=== PATIENT | male | born 1980 | race Caucasian/White ===

== ENCOUNTER 2021-01-09 15:36 | Outpatient (CLI) | payer BC, SELFPAY | END 2021-01-09 15:37 | disposition home or self-care (01) | LOC: ANHCOVIDVC 15:36 | DX: Z23 Encounter for immunization (principal) | CPT/HCPCS: 0001A; 91300 ==

== ENCOUNTER 2021-01-30 15:25 | Outpatient (CLI) | payer BC, SELFPAY | END 2021-01-30 15:26 | disposition home or self-care (01) | LOC: ANHCOVIDVC 15:26 | DX: Z23 Encounter for immunization (principal) | CPT/HCPCS: 0002A; 91300 ==

== ENCOUNTER 2024-10-21 09:00 | Emergency (ER) | payer BC, SELFPAY ==
--- NOTE | ~2024-10-21 | CT_ITS ---
CLINICAL INDICATION: Left lower quadrant pain COMPARISON: None. TECHNIQUE: Multiple contiguous axial images of the abdomen and pelvis were performed following the ad ministration of with 100 mL Omnipaque-350 intravenous contrast The dose-length product (DLP) was 615.56 mGy-cm. Automated exposure control and iterative reconstruction technique were employed. FINDINGS/OBSERVATIONS: Visualized lower thorax: Trace bibasilar atelectasis. The remainder of the bilateral lung bases are otherwise clear. The heart is of normal size, without pericardial effusion. Liver: The liver enhances homogeneously, and is enlarged measuring 20 cm in longitudinal dimension. Gallbladder and biliary system: The gallbladder is only minimally distended, and otherwise unremarkable. Pancreas: The pancreas enhances homogeneously without ductal dilatation. Spleen: The spleen enhances homogeneously and is not enlarged measuring 8 cm in longitudinal dimension. Kidneys: 5 mm calculus within the lower pole of the left kidney The bilateral kidneys enhance symmetrically without hydronephrosis or renal calculi. Adrenal glands: Unremarkable. Gastrointestinal tract: Mural thickening and edema is identified within the majority of the colon, sparing the transverse and distal descending colon. Surrounding inflammatory change is also identified consistent with a coliti s. No perforation or fluid collection is present. Appendix: The air-filled appendix is of normal caliber (axial series, images 118 through 144) Vasculature: Unremarkable. Lymph nodes: No pathologically enlarged or morphologically suspicious lymph nodes within the retroperitoneum or at the root of the mesentery. Pelvic structures: The bladder is distended, and otherwise unremarkable. The prostate gland is not enlarged. Body wall and musculoskeletal: Small fat-containing umbilical hernia. No significant degenerative disease within the lower thoracic or lumbosacral spine. IMPRESSION: Findings within the distal colon consistent with a colitis, as detailed above. Reviewed, dictated and finalized at location A. NING MACHINE OPERATOR
[2024-10-21 09:03] VITALS: BP 150/97; PULSE 106; RESP 14; TEMP 37.6; O2SAT 99
[2024-10-21 09:41] VITALS: BP 146/88; PULSE 100; RESP 18; O2SAT 97
[2024-10-21 10:01] LABS: Basophils Absolute Auto 0.1 K/mm3 (0.0-0.1); Basophils Percent Auto 0.8 % (0.2-1.2); Eosinophils Absolute Auto 0.1 K/mm3 (0-0.3); Eosinophils Percent Auto 0.8 % (0-4.4); Hematocrit 38.8 % (42.0-52.0); Hemoglobin 12.7 g/dL (14.0-18.0); Immature Granulocyte Absolute 0.03 K/mm3 (0.00-0.031); Immature Granulocyte Percent A 0.5 % (0-0.5); Lymphocytes Absolute Auto 0.49 K/mm3 (0.9-3.2); Lymphocytes Percent Auto 7.6 % (18.3-44.2); Mean Corpuscular HGB Conc 32.7 g/dl (32-36); Mean Corpuscular Hemoglobin 27.2 pg (26-34); Mean Corpuscular Volume 83.1 fl (80-100); Mean Platelet Volume 9.9 fl (7.4-10.4); Monocytes Absolute Auto 0.3 K/mm3 (0.1-0.6); Monocytes Percent Auto 4.9 % (2.6-8.5); Neutrophils Absolute Auto 5.5 K/mm3 (1.3-6.7); Neutrophils Percent Auto 85.4 % (45.5-73.1); Platelet Count Result 291 k/mm3 (150-375); Red Blood Count 4.67 M/mm3 (4.6-6.20); Red Cell Distribution Width 13.2 % (11.5-14.5); White Blood Count 6.5 K/mm3 (4.5-10.0)
[2024-10-21 10:05] LABS: Add Urine Microscopic? NO; Appearance Urine Clear (Clear); Bilirubin Urine Negative (Negative); Blood Urine Negative (Negative); Color Urine Yellow (Yellow); Glucose Urine UA Negative (Negative); Ketones Urine Negative (Negative); Leukocyte Esterase Ur Negative LEU/UL (Negative); Nitrate Urine Negative (Negative); Protein Urine Negative (Negative); Specific Grav Ur 1.015 (1.001-1.035); Urobilinogen Urine 0.2 mg/dL (<2.0); pH Urine 6.5 (5.0-9.0)
[2024-10-21 10:16] LABS: Alanine Aminotransferase 20 U/L (6-50); Albumin Level 4.1 g/dL (3.5-5.1); Alkaline Phosphatase 76 U/L (38-126); Anion Gap 12 mmol/L (4-12); Aspartate Amino Transferase 29 U/L (17-59); Bilirubin,Total 1.2 mg/dL (0.2-1.3); Blood Urea Nitrogen 7 mg/dL (9-20); Calcium 8.6 mg/dL (8.4-10.2); Carbon Dioxide 21 mmol/L (22-30); Chloride 106 mmol/L (98-107); Estimated CRCL calculation 142 ml/min; Estimated Glomerular Filt Rate > 60; Glucose 113 mg/dL (65-110); Lipase 25 U/L (23-300); Potassium 3.8 mmol/L (3.4-5.0); Sodium 139 mmol/L (137-145)
--- NOTE | 2024-10-21 10:52 | ED_ITS ---
HPI - Abdominal Pain General Chief Complaint: Abdominal Pain Stated Complaint: UC flare up, fatigue, bloody stools Time Seen by Provider: 10/21/24 09:59 Source: patient Mode of arrival: ambulatory Limitations: no limitations History of Present Illness HPI narrative: This is a 44-year-old male, with history of ulcerative colitis, presenting to the emergency department complaining of bloody stools and vomiting for the past 2 days. This is associated with 9/10 left lower quadrant abdominal pain described as sharp without radiation. He denies any associated fevers, chills, chest pain shortness of breath. He has no other complaints at this time. He states he is scheduled to follow-up with his GI doctor at [facility] in 3 days. Related Data Allergies Allergy/AdvReac Type Severity Reaction Status Date / Time No Known Allergies Allergy Verified 10/21/24 09:45 Review of Systems 2 Review of Systems: All systems reviewed & are unremarkable except as noted in HPI and below PMFSH Past Medical History Medical History No significant past medical history Ulcerative colitis Social History Social History Smoking status: Never smoker Alcohol intake: never Substance use: never Exam 2 Narrative: GENERAL: Well-developed, well-nourished, and in no acute distress. HEAD: Normocephalic, atraumatic. EYES: PERRLA and EOMI. CHEST: Clear to auscultation. No respiratory distress. No wheezes rales or rhonchi HEART: Regular rate and rhythm. No murmur heard. Normal peripheral pulses. ABDOMEN: Soft, tender palpation in left lower quadrant, without rebound or guarding, nondistended, normal active bowel sounds. No CVA tenderness EXTREMITIES: Normal range of motion. No edema. SKIN: Warm, dry, no rash. NEURO: Alert and oriented x3. No focal deficit. Moving all 4 limbs spontaneously PSYCH: Normal mood and affect. Course Course Emergency Course: 13:17 - CBC demonstrates mild anemia with hemoglobin of 12.7 with an unknown baseline but is otherwise unremarkable. Chemistries unremarkable, including a normal lipase. Urinalysis unremarkable. CT abdomen pelvis demonstrates ?Mural thickening and edema is identified within the majority of the colon, sparing the transverse and distal descending colon. Surrounding inflammatory change is also identified consistent with a colitis. No perforation or fluid collection is present. The patient was able to tolerate p.o. intake after Zofran and pain medications. He states he feels improved. Will discharge with Zofran, oral steroid taper and recommendation for GI follow-up. I discussed the findings and recommendations with the patient. Discussed return and emergency precautions including signs/symptoms of acute abdomen and intractable vomiting. The patient voiced understanding and agreement with the plan. All questions answered to his satisfaction. Vital Signs Vital signs: Vital Signs Temperature 99.6 F 10/21/24 09:03 Pulse Rate 106 H 10/21/24 09:03 Respiratory Rate 14 10/21/24 09:03 Blood Pressure 150/97 H 10/21/24 09:03 Pulse Oximetry 99 10/21/24 09:03 Oxygen Delivery Room Air 10/21/24 09:03 Temperature 99.6 F 10/21/24 09:03 Pulse Rate 100 10/21/24 09:41 Respiratory Rate 18 10/21/24 09:41 Blood Pressure 146/88 H 10/21/24 09:41 Pulse Oximetry 97 10/21/24 09:41 Oxygen Delivery Room Air 10/21/24 09:41 MDM - Abdominal Pain MDM Narrative Medical decision making narrative: Plan: Labs, imaging, pain control, antiemetics, reassess Differential Diagnosis Differential diagnosis: Likely acute appendicitis, diverticulitis, gastroenteritis, pancreatitis, small bowel obstruction and other (UC flare, colitis, malignancy, other) Lab Data 10/21/24 09:55 10/21/24 09:55 Labs: Lab Results 10/21/24 10/21/24 Range/Units 09:55 10:16 WBC 6.5 (4.5-10.0) K/mm3 RBC 4.67 (4.6-6.20) M/mm3 Hgb 12.7 L (14.0-18.0) g/dL Hct 38.8 L (42.0-52.0) % MCV 83.1 (80-100) fl MCH 27.2 (26-34) pg MCHC 32.7 (32-36) g/dl RDW 13.2 (11.5-14.5) % Plt Count 291 (150-375) k/mm3 MPV 9.9 (7.4-10.4) fl Immature Gran % (Auto) 0.5 (0-0.5) % Neut % (Auto) 85.4 H (45.5-73.1) % Lymph % (Auto) 7.6 L (18.3-44.2) % [place] % (Auto) 4.9 (2.6-8.5) % Eos % (Auto) 0.8 (0-4.4) % Baso % (Auto) 0.8 (0.2-1.2) % Lymph # (Auto) 0.49 L (0.9-3.2) K/mm3 [place] # (Auto) 0.3 (0.1-0.6) K/mm3 Eos # (Auto) 0.1 (0-0.3) K/mm3 Baso # (Auto) 0.1 (0.0-0.1) K/mm3 Abs Immat Gran (auto) 0.03 (0.00-0.031) K/mm3 Absolute Neuts (auto) 5.5 (1.3-6.7) K/mm3 Absolute Nucleated RBC 0.000 (0.0-0.012) K/mm3 Nucleated RBC % 0.0 (0.0-0.2) % Sodium 139 (137-145) mmol/L Potassium 3.8 (3.4-5.0) mmol/L Chloride 106 (98-107) mmol/L Carbon Dioxide 21 L (22-30) mmol/L Anion Gap 12 (4-12) mmol/L BUN 7 L (9-20) mg/dL Creatinine 0.62 L (0.7-1.3) mg/dL Estim Creat Clear Calc 142 ml/min Estimated GFR > 60 (59 - ) Glucose 113 H (65-110) mg/dL Lactic Acid 0.9 (0.7-2.0) mmol/L Calcium 8.6 (8.4-10.2) mg/dL Total Bilirubin 1.2 (0.2-1.3) mg/dL AST 29 (17-59) U/L ALT 20 (6-50) U/L Alkaline Phosphatase 76 (38-126) U/L Total Protein 7.0 (6.3-8.2) g/dL Albumin 4.1 (3.5-5.1) g/dL Lipase 25 (23-300) U/L Urine Color Yellow (Yellow) Urine Appearance Clear (Clear) Urine pH 6.5 (5.0-9.0) Ur Specific [place] 1.015 (1.001-1.035) Urine Protein Negative (Negative) mg/dL Urine Glucose (UA) Negative (Negative) mg/dL Urine Ketones Negative (Negative) mg/dL Ur Blood (Man) Negative (Negative) Urine Nitrate Negative (Negative) Urine Bilirubin Negative (Negative) Urine Urobilinogen 0.2 (<2.0) mg/dL Leukocyte Esterase Rfl Negative (Negative) MEHDI/UL Imaging Data Radiologist's impression: ITS Impressions Abdomen/Pelvis CT 10/21/24 12:10 IMPRESSION: Findings within the distal colon consistent with a colitis, as detailed above. Discharge Plan Discharge Clinical Impression: Abdominal pain, left lower quadrant Ulcerative colitis, acute Qualifiers: Digestive disease complication type: without complication Qualified Code(s): K 51.90 - Ulcerative colitis, unspecified, without complications Nausea & vomiting Qualifiers: Vomiting type: unspecified Qualified Code(s): R11.2 - Nausea with vomiting, unspecified Patient Disposition: Home, Self-Care Condition: Stable Instructions: Antibiotic Form, Ulcerative Colitis (ED) Additional Instructions: You were seen in the emergency department. Your CT scan showed changes consistent with ulcerative colitis but was not concerning for focal infection or perforation of the bowel. Your given pain medications, IV fluids and nausea medications. I recommend nausea medications, a steroid taper and follow-up with your GI doctor. If you develop severe abdominal pain, abdominal pain with fevers, persistent vomiting, or if you have other emergent concerns for life, limb, or eyesight, return to the emergency department. Patient Language: Danish Prescriptions: New prednisone 5 mg tablet See Taper PO DAILY 91 Days Qty: 340 0RF Taper: Prednisone Taper from 40 mg;13 weeks 40 mg DAILY for 14 Days and 0 Hour 35 mg DAILY for 7 Days and 0 Hour 30 mg DAILY for 7 Days and 0 Hour 25 mg DAILY for 7 Days and 0 Hour 22.5 mg DAILY for 7 Days and 0 Hour 20 mg DAILY for 7 Days and 0 Hour 17.5 mg DAILY for 7 Days and 0 Hour 15 mg DAILY for 7 Days and 0 Hour 12.5 mg DAILY for 7 Days and 0 Hour 10 mg DAILY for 7 Days and 0 Hour 7.5 mg DAILY for 7 Days and 0 Hour 5 mg DAILY for 7 Days and 0 Hour 2.5 mg DAILY for 7 Days and 0 Hour ondansetron 4 mg tablet,disintegrating 4 mg PO Q6H PRN (Reason: nausea and vomiting) Qty: 20 0RF Follow-up/Referrals: Cruzito,MD Damien [Primary Care Provider] - 1 Week Perez Benton MD [Physician] - 2 Weeks Time of Disposition: 13:27
[2024-10-21] MEDS: SODIUM CHLORIDE 0.9% IV 1,000 ML 999 ML IV CONT (11:20)
[2024-10-21] MEDS: MORPHINE SULFATE (*CRX) 4 MG/ML INJ IV PUSH (11:21)
[2024-10-21] MEDS: ONDANSETRON INJ 4 MG/2 ML VIAL IV PUSH (11:21)
[2024-10-21 12:35] LABS: Lactic Acid Reflex 0.9 mmol/L (0.7-2.0)
--- NOTE | 2024-10-21 13:09 | PC.NURSE ---
patient ate mallory crackers and drank a sprite with no complaints of pain, vomiting, or nausea.
[2024-10-21 13:40] VITALS: BP 135/82; PULSE 75; RESP 18; O2SAT 100
--- OUTSIDE RECORDS SUMMARY | 2024-10-25 10:15 | XMS_ITS | Encounter Summary ---
Author Organization [facility] Address [address] [place] [address]. [place] [address] [place] [address] Care Team Providers Care Rn Palliative Care Name Role Phone Damien East MD Primary Care Provider [phone] Encounter Details Date Type Department Care Team (Late st Contact Info) Description 08/17/2023 MyCBitsmith Gamest Message Enc [facility] Medical Group Multispecialty Care - [facility] [address] [facility] [place] [address] Feliz Palma MD [address] [facility] [address] [place], [place] [id number] Medication Social History Tobacco Use Types Packs/Day Years Used Date Smoking Tobacco: Former Cigarettes Q uit: 09/14/2016 Smokeless Tobacco: Never Comments:social smoker; coun seled by Dr. East Alcohol Use Standard Drinks/Week Comments Not Currently 1.7 (1 standard drink = 0.6 oz p ure alcohol) social PHQ-2 Answer Date Recorded Patient Health Questionnaire-2 Score 0 08/17/2023 Sex and Gender Information Value Date Recorded Sex Assigned at Not on file Legal Sex Male 8:59 AM CDT Gender Identity Not on file Sexual Orientation Not on file documented as of this encounter Plan of Treatment Upcoming Encounters Date Type Department Care Team (Latest Contact Info) Description 11/30/2024 11:08 AM [facility] Hospital Encounter [facility] Surgery [address] [place] [address] Jamarcus De La O MD [address] [facility] [address] [place] [address] 11/30/2024 11:08 AM INVESTMENT EXECUTIVE - 11/30/2024 11:42 AM INVESTMENT EXECUTIVE Surgery [facility] [address] [place] [address] Jamarcus De La O MD [address] [facility] [address] [place] [address] EGD WITH POSSIBLE BIOPSY POSSIBLE DILATION Scheduled Procedures Name Priority Associated Diagnoses Date/Ti me EGD WITH BIOPSY Gallbladder sludge Dysphagia, unspecified type Abdominal pain, unspecified abdominal location 11/30/2024 11:08 AM INVESTMENT EXECUTIVE documented as of this encounter Visit Diagnoses Not on filedocumented in this encounter Additional Health Concerns Assessment Noted Time PHQ-9 Depression Total Score: 2 07/22/20 23 4:23 PM CDT documented as of this encounter Care Teams Rn Palliative Care Relationship Specialty Start Date End Date Damien East MD [address] [address] PCP - General INTERNAL MEDICINE 07/17/21 documented as of this encounter
--- OUTSIDE RECORDS SUMMARY | 2024-10-25 10:15 | XMS_ITS | Encounter Summary ---
Author Organization [facility] Address [address] [place] [address]. [place], [place] [address] [place] [address] Care Team Providers Care [employer] Law Clerk Name Role Phone Damien East MD Primary Care Provider [phone] Encounter Details Date Type Department Care Team (Late st Contact Info) Description 03/31/2023 Acert Message Enc [facility] Medical Group Multispecialty Care - [place] [address] [address] [place] [address] [place] [address] [place] [address] [address] [place], [place] [id number] Visit Social History Tobacco Use Types Packs/Day Years Used Date Smoking Tobacco: Former Cigarettes Q uit: 09/14/2016 Smokeless Tobacco: Never Comments:social smoker; coun seled by Dr. East Alcohol Use Standard Drinks/Week Comments Not Currently 1.7 (1 standard drink = 0.6 oz p ure alcohol) social PHQ-2 Answer Date Recorded Patient Health Questionnaire-2 Score 1 03/30/2023 Sex and Gender Information Value Date Recorded Sex Assigned at Not on file Legal Sex Male 8:59 AM CDT Gender Identity Not on file Sexual Orientation Not on file documented as of this encounter Plan of Treatment Upcoming Encounters Date Type Department Care Team (Latest Contact Info) Description 11/30/2024 11:08 AM [facility] Hospital Encounter [facility] [address] [place] [address] Jamarcus De La O MD [address] [facility] [address] [place] [address] 11/30/2024 11:08 AM TILE SETTER APPRENTICE - 11/30/2024 11:42 AM TILE SETTER APPRENTICE Surgery [facility] [address] [place] [address] Jamarcus De La O MD [address] [facility] [address] [place] [address] EGD WITH POSSIBLE BIOPSY POSSIBLE DILATION Scheduled Procedures Name Priority Associated Diagnoses Date/Ti me EGD WITH BIOPSY Gallbladder sludge Dysphagia, unspecified type Abdominal pain, unspecified abdominal location 11/30/2024 11:08 AM TILE SETTER APPRENTICE documented as of this encounter Visit Diagnoses Not on filedocumented in this encounter Additional Health Concerns Assessment Noted Time PHQ-9 Depression Total Score: 2 03/30/20 23 9:33 AM CDT documented as of this encounter Care Teams [employer] Law Clerk Relationship Specialty Start Date End Date Damien East MD [address] [facility] [address] [place] [address] PCP - General INTERNAL MEDICINE 07/17/21 documented as of this encounter
--- OUTSIDE RECORDS SUMMARY | 2024-10-25 10:15 | XMS_ITS | Encounter Summary ---
Author Organization [facility] Address [address] [place] [address]. [place], [place] [address] [place] [address] Care Team Providers Care Nurse Executive Name Role Phone Damien East MD Primary Care Provider [phone] Encounter Details Date Type Department Care Team (Late st Contact Info) Description 06/02/2022 myeasydocst Message Enc [facility] Medical Group Multispecialty Care - [place] [address] [address] [place], [place] [phone] Damien East MD [address] [place] [address] [address] [place], [place] [id number] Kidney stone Social History Tobacco Use Types Packs/Day Years Used Date Smoking Tobacco: Former Cigarettes Q uit: 09/14/2016 Smokeless Tobacco: Never Comments:Counsled by Dr. FERNANDO CLAY. Socially smoked. Alcohol Use Standard Drinks/Week Comments Not Currently 0 (1 standard drink = 0.6 oz pur e alcohol) PHQ-2 Answer Date Recorded PHQ-2 Score - If the patient scores above 3, please move on to questions 3-9 1 05/24/2022 Sex and Gender Information Value Date Recorded Sex Assigned at Not on file Legal Sex Male 8:59 AM CDT Gender Identity Not on file Sexual Orientation Not on file COVID-19 Exposure Response Date Recorded In the last 10 days, have yo u been in contact with someone who was confirmed or suspected to have Coronavirus/COVID-19? No / Unsure 06/02/2022 8:42 AM CDT documented as of this encounter Plan of Treatment Upcoming Encounters Date Type Department Care Team (Latest Contact Info) Description 11/30/2024 11:08 AM [facility] Hospital Encounter [facility] [address] [place] [address] Jamarcus De La O MD [address] [facility] [address] [place], [place] [id number] 11/30/2024 11:08 AM ENTERTAINER & COMIC - 11/30/2024 11:42 AM [facility] COMIC Surgery [facility] [address] [place] [address] Jamarcus De La O MD [address] [facility] [address] [place] [address] EGD WITH POSSIBLE BIOPSY POSSIBLE DILATION Scheduled Procedures Name Priority Associated Diagnoses Date/Ti me EGD WITH BIOPSY Gallbladder sludge Dysphagia, unspecified type Abdominal pain, unspecified abdominal location 11/30/2024 11:08 AM ENTERTAINER & COMIC documented as of this encounter Visit Diagnoses Not on filedocumented in this encounter Additional Health Concerns Assessment Noted Time PHQ-9 Depression Total Score: 3 02/06/20 22 3:46 PM CDT documented as of this encounter Care Teams Nurse Executive Relationship Specialty Start Date End Date Damien East MD [address] [facility] [address] [place] [address] PCP - General INTERNAL MEDICINE 07/17/21 documented as of this encounter
--- OUTSIDE RECORDS SUMMARY | 2024-10-25 10:15 | XMS_ITS | Clinical Summary ---
Author Organization [facility] Address [address] [place] [address]. [place] [address] [place] [address] Care Team Providers Care Front Desk Host Name Role Phone Damien East MD Primary Care Provider [phone] Allergies Active Allergy Reactions Criticality Noted Date Comments Buspirone Dizziness 08/15/2024 Liraglutide GI Upset 07/22/2023 Medications Cholecalciferol (VITAMIN D-3 OR) Act jaden atorvastatin (LIPITOR) 20 MG tabletIndications:M ixed hyperlipidemia Take 1 tablet (20 mg total) by mouth nightly at bedtime. at bedtime 180 tablet 1 Active citalopram (CELEXA) 40 MG tabletIndications:M ild episode of recurrent major depressive disorder (CMS/HCC),Anxiety Take 1 tablet (40 mg total) by mouth daily. 90 tablet 1 Active Additional Information Patient not taking.Reported on 10/24/2024 fenofibrate 160 MG tabletIndications:H ypertriglyceridemia Take 1 tablet (160 mg total) by mouth daily. 90 tablet 1 024 Active mesalamine (ROWASA) [address] 18 mLs (1.2 g total) rectally nightly at bedtime. Active mesalamine EC (LIALDA) 1.2 g Tab EC tabletIndications:U lcerative rectosigmoiditis without complication (CMS/HCC HHS/HCC) Take 4 tablets (4.8 g total) by mouth daily. with food 360 tablet 3 024 2024 buPROPion SR (WELLBUTRIN SR) 150 MG 12 hr tabletIndications:M ild episode of recurrent major depressive disorder (CMS/HCC) Take 1 tablet (150 mg total) by mouth 2 (two) times daily. 180 tablet 1 024 2024 Discontinued guselkumab (TREMFYA) 200 MG/20ML injectionIndication s:Ulcerative colitis with rectal bleeding, unspecified location ([facility]) Inject 20 mLs (200 mg total) into the vein once for 1 dose. 20 mL 025 2024 Active Problems Problem Noted Date Diagnosed Date Gallbladder sludge 10/10/2024 Dysphagia, unspecified type 10/10/2024 Abdominal pain, unspecified abdominal location 0 10/10/2024 Ulcerative rectosigmoiditis without complication ([facility]) 08/18/2023 Positive fecal occult blood test 05/23/2023 Overview (05/23/2023): Added automatically from request for surgery [id number] Hematochezia 05/23/2023 Overview (05/23/2023): Added automatically from request for surgery [id number] BRBPR (bright red blood per rectum) 05/23/2023 Overview (05/23/2023): Added automatically from request for surgery [id number] Mixed hyperlipidemia 02/05/2022 Anxiety 11/13/2021 Primary hypertension 10/16/2021 Mild episode of recurrent major depressive disor shanika 10/16/2021 Overview (02/05/2022): On Celexa 20 mg daily with close follow up. PHQ-9 and DOMINIC-7 scores reviewed and appear controlled. Patient counseled for about 3 minutes on strategies including stress management, sleep hygiene, balanced diet, regular physical activity including aerobic exercise, weight reduction, activity pacing and maintenance of overall health lifestyle. Comorbidities including depression, anxiety currently being managed. Active nonpharmacological therapies including supervised and graded exercise program as well as cognitive behavioral interventions discussed as well. Obese 10/16/2021 Encounters Date Type Department Care Team Description 10/24/2024 3:00 PM LIVESTOCK SPECULATOR Office Visit [facility] [address] [place] [phone] Feliz Palma MD Follow Up (Follow up) 10/24/2024 Travel 10/22/2024 MyChart Message [facility] [address] [place] [phone] Feliz Palma MD Appointment 10/21/2024 Scan Vettro INFO SRVCS Scanned, [facility] 10/10/2024 Prep for Procedure [facility] General Surgery [address], [address] [place] [address] Jamarcus De La O MD 10/05/2024 3:40 PM LIVESTOCK SPECULATOR Office Visit [facility] General Surgery [facility] [address] [place] [address], [address] [place] [address] Jamarcus De La O MD Gallbladder (Patient presents for gallbladder consult. ) 10/05/2024 Travel 08/31/2024 MyChart Message [facility] [place] [address] [place] [address] Damien East MD General Surgeon 08/29/2024 [facility] [place] [address] [place] [address] Damien East MD Referral 08/28/2024 8:09 AM LIVESTOCK SPECULATOR - 08/28/2024 11:59 PM LIVESTOCK SPECULATOR Hospital En[facility] [address] [place] [address] Damien East MD Discharge Disposition: Home or Self Care (Routine Discharge) 08/28/2024 Travel 08/17/2024 MyChart Message [facility] [place] [address] [facility] [address] [place] [address] [facility] Provider lab results 08/16/2024 Telephone [place] [address] [address] [facility] [address] [place] [address] Damien East MD Medication 08/15/2024 3:00 PM LIVESTOCK SPECULATOR Office Visit [place] [address] [address] [facility] [address] [place] [address] Damien East MD Physical (F/u on colitis meds. Pt also mentioned gallbladder issues that he spoke about during his last appt. Pt declined flu shot) 08/15/2024 Travel 07/30/2024 [employer] Message Enc [place] [address] [address] [facility] [address] [place] [address] Damien East MD Physical Nov 13 from Last 3 Months Immunizations Name Administration Dates Next Due Pneumococcal (Pneumovax 23) 12/11/2021 Tdap (Adacel) 02/06/2021 Family History Medical History Relation Comments Hyperlipidemia Father Hypertension Father Hyperlipidemia Sister Hypertension Sister Relation Status Comments Brother Alive Father Alive Mother Alive Sister Social History Tobacco Use Types Packs/Day Years Used Date Smoking Tobacco: Former Cigarettes Q uit: 09/14/2016 Smokeless Tobacco: Never Tobacco Cessation:Counseling Given: Yes Comments:social smoker; counseled by Dr. East Alcohol Use Standard Drinks/Week Comments Not Currently 1.7 (1 standard drink = 0.6 oz p ure alcohol) social PHQ-2 Answer Date Recorded Patient Health Questionnaire-2 Score 0 10/24/2024 Sex and Gender Information Value Date Recorded Sex Assigned at Not on file Legal Sex Male 8:59 AM CDT Gender Identity Not on file Sexual Orientation Not on file Last Filed Vital Signs Vital Sign Reading Time Taken Comments Blood Pressure 128/76 10/24/2024 2:43 PM LIVESTOCK SPECULATOR Pulse 87 10/24/2024 2:43 PM LIVESTOCK SPECULATOR Temperature 36.3 ??C (97.4 ??F) 10/24/2024 2:43 PM CS T Respiratory Rate 18 10/24/2024 2:43 PM LIVESTOCK SPECULATOR Oxygen Saturation 98% 10/24/2024 2:43 PM LIVESTOCK SPECULATOR Inhaled Oxygen Concentration - - Weight 93.4 kg (206 lb) 10/24/2024 2:43 PM LIVESTOCK SPECULATOR Height 170.2 cm (5' 7 ) 10/24/2024 2:43 PM LIVESTOCK SPECULATOR Body Mass Index 32.26 10/24/2024 2:43 PM LIVESTOCK SPECULATOR Plan of Treatment Upcoming Encounters Date Type Department Care Team (Latest Contact Info) Description 11/30/2024 11:08 AM LIVESTOCK SPECULATOR Hospital Encounter [facility] [address] [place] [address] Jamarcus De La O MD [address] [facility] [address] [place] [address] 11/30/2024 11:08 AM LIVESTOCK SPECULATOR - 11/30/2024 11:42 AM LIVESTOCK SPECULATOR Surgery [facility] [address] [place] [address] Jamarcus De La O MD [address] [facility] [address] [place] [address] EGD WITH POSSIBLE BIOPSY POSSIBLE DILATION Scheduled Procedures Name Priority Associated Diagnoses Date/Ti me EGD WITH BIOPSY Gallbladder sludge Dysphagia, unspecified type Abdominal pain, unspecified abdominal location 11/30/2024 11:08 AM LIVESTOCK SPECULATOR Health Maintenance Due Date Last Done Comments Hepatitis B Vaccines (1 of 3 - 19+ 3-dose series) 2000 COVID-19 Vaccine (3 - 2023- season) 2024 01/30/2021, 01/09/2021 Annual Physical 08/15/2025 08/15/2024, 03/04, 02/05/2022, Additional history exists Influenza Adult (#1) 2025 Postpon ed from 07/03/2024 (Patient Refused) PHQ-2 (Physician [place]) 10/24/2025 10/24/2024 DTaP, Tdap and Td Vaccines (2 - Td or Tdap) 02/06/2031 02/06/2021 Pneumococcal Vaccine: Pediatrics (0 to 5 Years) and At-Risk Patients (6 to 64 Years) Aged Out 12/11/2021 No longer eligible based on patient's age to complete this topic Hepatitis C Completed 08/15/2024 HPV Vaccines Aged Out No longer eligi ble based on patient's age to complete this topic Meningococcal B Vaccine Aged Out No l onger eligible based on patient's age to complete this topic Meningococcal Vaccine Aged Out No anita nimo eligible based on patient's age to complete this topic RSV Immunizations Under 20 Months Aged Out No longer eligible based on patient's age to complete this topic Procedures Procedure Name Priority Date/Time Associated Diagnosis Comments US ABD LIMITED Routine 08/28/2024 9:11 AM LIVESTOCK SPECULATOR Generalized abdominal pain BONE DENSITY/DEXA Routine 08/28/2024 8:2 9 AM LIVESTOCK SPECULATOR Screening for osteoporosis HEPATITIS C ANTIBODY W/RFX TO HCV RNA Routine 08/15/2024 4:02 PM LIVESTOCK SPECULATOR Annual physical exam General medical exam Ulcerative rectosigmoiditis without complication ([facility]/HCC HHS/HCC) Hypertriglyceridemia Screening for osteoporosis SED RATE, ERYTHROCYTE (ESR) Routine 08/15/2024 4:02 PM LIVESTOCK SPECULATOR Drug therapy C-REACTIVE PROTEIN Routine 08/15/2024 4: 02 PM LIVESTOCK SPECULATOR Drug therapy HEPATITIS B SURFACE ANTIBODY Routine 08/15/2024 4:02 PM LIVESTOCK SPECULATOR Drug therapy CBC W/DIFF AUTOMATED Routine 08/15/2024 4:02 PM LIVESTOCK SPECULATOR Annual physical exam General medical exam Drug therapy COMPREHENSIVE METABOLIC PANEL Routine 08/15/2024 4:02 PM LIVESTOCK SPECULATOR Annual physical exam General medical exam Drug therapy LIPID PANEL Routine 08/15/2024 4:02 PM LIVESTOCK SPECULATOR Annual physical exam General medical exam Screening for hyperlipidemia Drug therapy TSH W/REFLEX Routine 08/15/2024 4:02 PM LIVESTOCK SPECULATOR Annual physical exam General medical exam Screening for hypothyroidism Drug therapy HEMOGLOBIN, GLYCOSYLATED Routine 08/15/2024 4:02 PM LIVESTOCK SPECULATOR Annual physical exam General medical exam Screening for diabetes mellitus Drug therapy COLLECTION VENOUS BLOOD VENIPUNCTURE Routine 08/15/2024 3:29 PM LIVESTOCK SPECULATOR Annual physical exam General medical exam Drug therapy from Last 3 Months Results * US ABD LIMITED (08/28/2024 9:11 AM LIVESTOCK SPECULATOR) Anatomical Region Laterality Modality Abdomen Ultrasound 08/28/2024 9:26 AM LIVESTOCK SPECULATOR Impressions 08/28/2024 9:28 AM LIVESTOCK SPECULATOR =====IMPRESSION:===== 1. Gallbladder sludge without sonographic evidence for acute cholecystitis. 2. Hepatic steatosis. Ordered By: DAMIEN EAST Interpreted By: Gonzalez Butt MD, 08/28/2024 9:26 AM Narrative 08/28/2024 9:28 AM LIVESTOCK SPECULATOR [facility] [place] [address] EXAMINATION: Limited abdomen ultrasound: RUQ EXAM DATE/TIME: 08/28/2024 8:53 AM REASON FOR EXAM: Gallbladder disease, abdominal pain. COMPARISON: CT abdomen pelvis 06/22/2024. TECHNIQUE: An ultrasound examination of the RUQ was performed to assess grayscale appearance, color-flow characteristics and spectral doppler analysis. FINDINGS: Liver: Increase echogenicity. No masses. No intrahepatic duct dilatation. Liver measures 16.7cm. in length. Pancreas: Not well visualized on the images provided and reviewed secondary to overlying bowel gas. Portal vein: Spectral analysis reveals normal hepatopedal flow. Gallbladder: Gallbladder sludge is present. No wall thickening or pericholecystic fluid. ??Negative sonographic Oleary's sign.Gallbladder wall thickness measures 0.2cm. Common bile duct: ??not visualized on images provided and reviewed due to overlying bowel gas. Right kidney Measures: 11.5 cm X 5.8 cm X 5.5 cm. Normal echogenicity. Normal cortical perfusion. No masses, cysts, stones or hydronephrosis. Other findings: No ascites. Procedure Note Gonzalez Butt MD - 08/28/2024 [facility] [place] [address] EXAMINATION: Limited abdomen ultrasound: RUQ EXAM DATE/TIME: 08/28/2024 8:53 AM REASON FOR EXAM: Gallbladder disease, abdominal pain. COMPARISON: CT abdomen pelvis 06/22/2024. TECHNIQUE: An ultrasound examination of the RUQ was performed to assessgrayscale appearance, color-flow characteristics and spectral doppleranalysis. FINDINGS: Liver: Increase echogenicity. No masses. No intrahepatic duct dilatation.Liver measures 16.7cm. in length. Pancreas: Not well visualized on the images provided and reviewedsecondary to overlying bowel gas. Portal vein: Spectral analysis reveals normal hepatopedal flow. Gallbladder: Gallbladder sludge is present. No wall thickening orpericholecystic fluid. Negative sonographic Oleary's sign.Gallbladderwall thickness measures 0.2cm. Common bile duct: not visualized on images provided and reviewed due tooverlying bowel gas. Right kidney Measures: 11.5 cm X 5.8 cm X 5.5 cm. Normal echogenicity.Normal cortical perfusion. No masses, cysts, stones or hydronephrosis. Other findings: No ascites. =====IMPRESSION:===== 1. Gallbladder sludge without sonographic evidence for acutecholecystitis. 2. Hepatic steatosis. Ordered By: DAMIEN EAST Interpreted By: Gonzalez Butt MD, 08/28/2024 9:26 AM us Damien East MD ULTRASOUND Final Result * BONE DENSITY/DEXA (08/28/2024 8:29 AM LIVESTOCK SPECULATOR) Anatomical Region Laterality Modality Bone Mammography 08/28/2024 8:35 AM LIVESTOCK SPECULATOR Impressions 08/28/2024 8:36 AM LIVESTOCK SPECULATOR IMPRESSION: WHO Classification: Normal RECOMMENDATIONS: All patients should ensure an adequate intake of dietary calcium and vitamin D. The NOF recommend adults under the age of 50 need 1000 mg of calcium and 400-800 IU of vitamin D daily. Effective therapy for the prevention and treatment of osteoporosis include bisphosphonates. Follow-up: People with diagnosed cases of osteoporosis or at high risk for fracture should have regular bone mineral density test. For patients eligible for Medicare, routine testing is allowed once every 2 years. Testing frequency can be increased to one year for patients who have rapidly progressing disease, those who are receiving or discontinuing medical therapy to restore bone mass, or have additional risk factors. Referred By: DAMIEN EAST Interpreted By: Boy Arrieta MD, 08/28/2024 8:35 AM Narrative 08/28/2024 8:36 AM LIVESTOCK SPECULATOR [facility] [address] [place] [address] EXAMINATION: BONE DENSITY/DEXA INDICATIONS: Screening for osteoporosis COMPARISON: None TECHNIQUE: DEXA bone mineral density evaluation was performed in the AP projection over the lumbar spine and both hips utilizing standard imaging techniques. ASSESSMENT: The BMD measured at the AP spine L1-L4 is 1.170 g/cm? with a T-score of 0.7. ?? The BMD measured at the left femoral neck is 0.884 g/cm? with a T-score of -0.3. The BMD measured at the left hip is 1.205 g/cm? with a T-score of 1.1. ?? The BMD measured at the right femoral neck is 0.929 g/cm? with a T-score of 0.0. ?? The BMD measured at the right hip is 1.179 g/cm? with a T-score of 1.0. ?? FRAX 10-year fracture risk: Major Osteoporotic Fracture: 1.8% Hip Fracture: <0.1% Procedure Note Boy Arrieta MD - 08/28/2024 [facility] [place] [address] EXAMINATION: BONE DENSITY/DEXA INDICATIONS: Screening for osteoporosis COMPARISON: None TECHNIQUE: DEXA bone mineral density evaluation was performed in the APprojection over the lumbar spine and both hips utilizing standard imagingtechniques. ASSESSMENT: The BMD measured at the AP spine L1-L4 is 1.170 g/cm? with a T-score of0.7. The BMD measured at the left femoral neck is 0.884 g/cm? with a T-score of-0.3. The BMD measured at the left hip is 1.205 g/cm? with a T-score of 1.1. The BMD measured at the right femoral neck is 0.929 g/cm? with a T-scoreof 0.0. The BMD measured at the right hip is 1.179 g/cm? with a T-score of 1.0. FRAX 10-year fracture risk: Major Osteoporotic Fracture: 1.8% Hip Fracture: <0.1% IMPRESSION: WHO Classification: Normal RECOMMENDATIONS: All patients should ensure an adequate intake of dietary calcium andvitamin D. The NOF recommend adults under the age of 50 need 1000 mg ofcalcium and 400-800 IU of vitamin D daily. Effective therapy for theprevention and treatment of osteoporosis include bisphosphonates. Follow-up: People with diagnosed cases of osteoporosis or at high risk for fractureshould have regular bone mineral density test. For patients eligible forMedicare, routine testing is allowed once every 2 years. Testing frequencycan be increased to one year for patients who have rapidly progressingdisease, those who are receiving or discontinuing medical therapy torestore bone mass, or have additional risk factors. Referred By: DAMIEN EAST Interpreted By: Boy Arrieta MD, 08/28/2024 8:35 AM us Damien East MD DEXA Final Result * HEPATITIS C ANTIBODY W/RFX TO HCV RNA (08/15/2024 4:02 PM LIVESTOCK SPECULATOR) HEPATITIS C AB NON-REACT JADEN NON-REACT JADEN [facility] Comment: HCV antibody was non-reactive. There is no laboratory evidence of HCV infection. In most cases, no further action is required. However, if recent HCV exposure is suspected, a test for HCV RNA (test code 00424) is suggested. For additional information please refer to http://education.[employer]/faq/VYQ34p1 (This link is being provided for informational/ educational purposes only.) 08/15/2024 4:02 PM LIVESTOCK SPECULATOR 08/16/2024 7:15 AM LIVESTOCK SPECULATOR Narrative Resulting Agency Comment Performing Organization Information: ?Site ID: [place]N ?Name: [facility] ?Address: [address] [place] [address] [place] [address] ?Director: Devorah Mclean MD Damien East MD LABORATORY Final Result Performing Organization Address [facility]/ZIP Co de Phone Number A-TEX [facility] [employer] [facility] [id number] [place] [address], [place] * TSH W/REFLEX (08/15/2024 4:02 PM LIVESTOCK SPECULATOR) Pathologist [facility] TSH 0.48 0.40 - 4.50 mIU/L [facility] [employer] [facility] 08/15/2024 4:02 PM LIVESTOCK SPECULATOR 08/16/2024 7:15 AM LIVESTOCK SPECULATOR Narrative Resulting Agency Comment Performing Organization Information: ?Site ID: [place]N ?Name: [facility] ?Address: [address] [place], [place] [address]ner [facility] [place] [address] ?Director: Devorah Mclean MD Damien East MD LABORATORY Final Result Performing Organization Address City/[facility]/ZIP Co de Phone Number A-TEX [facility] [employer] [facility] [address] [address] [place] [address], [place] * HEMOGLOBIN, GLYCOSYLATED (08/15/2024 4:02 PM LIVESTOCK SPECULATOR) HGB A1C 5.6 <5.7 % of total Hgb [facility] Comment: For the purpose of screening for the presence of diabetes: <5.7% ? Consistent with the absence of diabetes 5.7-6.4% ?Consistent with increased risk for diabetes ?(prediabetes) > or =6.5% ??Consistent with diabetes This assay result is consistent with a decreased risk of diabetes. Currently, no consensus exists regarding use of hemoglobin A1c for diagnosis of diabetes in children. According to [place] Diabetes Association (ADA) guidelines, hemoglobin A1c <7.0% represents optimal control in non- diabetic patients. Different metrics may apply to specific patient populations. Standards of Medical Care in Diabetes(ADA). ?? 08/15/2024 4:02 PM LIVESTOCK SPECULATOR 08/16/2024 7:15 AM LIVESTOCK SPECULATOR Narrative Resulting Agency Comment Performing Organization Information: ?Site ID: [place]N ?Name: [facility] ?Address: [address] [place], [place] [address]ner [place] [address] ?Director: Devorah Mclean MD Damien East MD LABORATORY Final Result [facility] [address] [place] [address], * (ABNORMAL) SED RATE, ERYTHROCYTE (ESR) (08/15/2024 4:02 PM LIVESTOCK SPECULATOR) SED RATE 34(H) < OR = 15 mm/h [facility] 08/15/2024 4:02 PM LIVESTOCK SPECULATOR 08/16/2024 7:15 AM LIVESTOCK SPECULATOR Narrative Resulting Agency Comment Performing Organization Information: ?Site ID: [place] ?Name: [facility] ?Address: [address] [place] [address] ?Director: Devorah Mclean MD Damien East MD LABORATORY Final Result [facility] [place] [address] [place] [address], [place] * COMPREHENSIVE METABOLIC PANEL (08/15/2024 4:02 PM LIVESTOCK SPECULATOR) GLUCOSE 93 65 - 99 mg/dL [facility] [employer] [facility] Comment: ? Fasting reference interval BUN 8 7 - 25 mg/dL [facility] CREATININE S/P/B 0.68 0.60 - 1.29 mg/dL [facility] GFR ESTIMATE 118 > OR = 60 mL/min/1. 73m2 [facility] BUN CREATININE RATIO SEE NOTE: (calc) [facility] Comment: ?? Not Reported: BUN and Creatinine are within ?? reference range. ? SODIUM S/P/B 141 135 - 146 mmol/L [facility] [place] POTASSIUM S/P/B 3.9 3.5 - 5.3 mmol/L [facility] [place] CHLORIDE S/P/B 106 98 - 110 mmol/L [facility] [place] CO2 26 20 - 32 mmol/L [facility] [place] CALCIUM S/P/B 9.1 8.6 - 10.3 mg/dL [facility] [place] TOTAL PROTEIN S/P/B 7.0 6.1 - 8.1 g/dL [facility] [place] ALBUMIN S/P/B 4.1 3.6 - 5.1 g/dL [facility] [place] GLOBULIN 2.9 1.9 - 3.7 g/dL (calc) [facility] ALBUMIN/GLOBULI N RATIO 1.4 1.0 - 2.5 (calc) [facility] [place] BILIRUBIN TOTAL S/P/B 0.3 0.2 - 1.2 mg/dL [facility] [place] ALKALINE PHOSPHATASE S/P/B 65 36 - 130 U/L [facility] [place] AST 12 10 - 40 U/L [facility] [place] ALT 12 9 - 46 U/L [facility] [place] 08/15/2024 4:02 PM LIVESTOCK SPECULATOR 08/16/2024 7:15 AM LIVESTOCK SPECULATOR Narrative Resulting Agency Comment Performing Organization Information: ?Site ID: [place] ?Name: [facility] ?Address: [address] [place] [address] ?Director: Devorah Mclean MD Damien East MD LABORATORY Final Result [facility] [address] [place] [address], * (ABNORMAL) LIPID PANEL (08/15/2024 4:02 PM LIVESTOCK SPECULATOR) CHOLESTEROL 161 <200 mg/dL [facility] HDL 34(L) > OR = 40 mg/dL [facility] TRIGLYCERIDES 230(H) <150 mg/dL [facility] Comment: If a non-fasting specimen was collected, consider repeat triglyceride testing on a fasting specimen if clinically indicated. Abhishek et al. J. of Clin. Lipidol. 2015;9:129-169. LDL (CALCULATED) 95 mg/dL (calc) [facility] Comment: Reference range: <100 Desirable range <100 mg/dL for primary prevention; ?? <70 mg/dL for patients with CHD or diabetic patients with > or = 2 CHD risk factors. LDL-C is now calculated using the Cristofer-Slater calculation, which is a validated novel method providing better accuracy than the Friedewald equation in the estimation of LDL-C. Cristofer SS et al. EVELYN. 2013;310(19): 4328-5379 (http://education.[employer]/faq/HYQ156) CHOL/HDL RATIO 4.7 <5.0 (calc) [facility] NON HDL CHOLESTEROL 127 <130 mg/dL (calc) [facility] Comment: For patients with diabetes plus 1 major ASCVD risk factor, treating to a non-HDL-C goal of <100 mg/dL (LDL-C of <70 mg/dL) is considered a therapeutic option. 08/15/2024 4:02 PM LIVESTOCK SPECULATOR 08/16/2024 7:15 AM LIVESTOCK SPECULATOR Narrative Resulting Agency Comment Performing Organization Information: ?Site ID: [place] ?Name: [facility] ?Address: [facility] [place] [address] ?Director: Devorah Mclean MD Damien East MD LABORATORY Final Result Performing Organization Address [facility] de Phone Number LIZA BRUNER - ALVARO KANDY Yunzhisheng [facility] [address] [place] [address], * (ABNORMAL) HEPATITIS B SURFACE ANTIBODY (08/15/2024 4:02 PM LIVESTOCK SPECULATOR) HEPATITIS B SURFACE AB REACTIVE( A) NON-REACT JADEN [facility] Comment: Our records indicate that you have ordered a client custom reflex order code. Only the initial test was performed because we do not have a client custom reflex testing authorization request form on file for you. Please contact a client renewal specialist if you would like additional testing done on this patient or contact your sales strategy manager to obtain a client custom reflex testing authorization request form. 08/15/2024 4:02 PM LIVESTOCK SPECULATOR 08/16/2024 7:15 AM LIVESTOCK SPECULATOR Narrative Resulting Agency Comment Performing Organization Information: ?Site ID: [place] ?Name: EDAN [facility] ?Address: [facility] [place] [address] ?Director: Devorah Mclean MD Damien East MD LABORATORY Final Result Performing Organization Address [facility] Co de Phone Number LIZA GAITAN Yunzhisheng [facility] [address] [place] [address], * (ABNORMAL) C-REACTIVE PROTEIN (08/15/2024 4:02 PM LIVESTOCK SPECULATOR) C-REACTIVE PROTEIN 19.0(H) <8.0 mg/L [facility] 08/15/2024 4:02 PM LIVESTOCK SPECULATOR 08/16/2024 7:15 AM LIVESTOCK SPECULATOR Narrative Resulting Agency Comment Performing Organization Information: ?Site ID: [place] ?Name: [facility] ?Address: [address] [address] ?Director: Devorah Mclean MD Damien East MD LABORATORY Final Result [facility] - ALVARO ORDERS [facility] [address] [address], * (ABNORMAL) CBC W/DIFF AUTOMATED (08/15/2024 4:02 PM LIVESTOCK SPECULATOR) Pathologist [facility] WBC 8.8 3.8 - 10.8 Thousand/ uL [facility] RBC 4.20 4.20 - 5.80 Million/u L [facility] HGB 12.0(L) 13.2 - 17.1 g/dL [facility] HCT 37.1(L) 38.5 - 50.0 % [facility] MCV 88.3 80.0 - 100.0 fL [facility] MCH 28.6 27.0 - 33.0 pg [facility] MCHC 32.3 32.0 - 36.0 g/dL [facility] Comment: For adults, a slight decrease in the calculated MCHC value (in the range of 30 to 32 g/dL) is most likely not clinically significant; however, it should be interpreted with caution in correlation with other red cell parameters and the patient's clinical condition. RDW 12.3 11.0 - 15.0 % [facility] PLT 410(H) 140 - 400 Thousand/ uL [facility] MPV 10.5 7.5 - 12.5 fL [facility] ABS. NEUTROPHILS 5,650 1,500 - 7,800 cells/uL [facility] ABS. LYMPHOCYTES 1,857 850 - 3,900 cells/uL [facility] ABS. MONOCYTES 458 200 - 950 cells/uL [facility] ABS. EOSINOPHILS 774(H) 15 - 500 cells/uL [facility] ABS. BASOPHILS 62 0 - 200 cells/uL [facility] SEG NEUTROPHILS 64.2 % [facility] LYMPHOC[facility]TES 21.1 % [facility] MONOCYTES 5.2 % [facility] EOSINOPHILS 8.8 % [facility] BASOPHILS 0.7 % [facility] 08/15/2024 4:02 PM LIVESTOCK SPECULATOR 08/16/2024 7:15 AM LIVESTOCK SPECULATOR Narrative Resulting Agency Comment Performing Organization Information: ?Site ID: [place] ?Name: Liza Sorensen ?Address: [address] [address] ?Director: Devorah Mclean MD us Damien East MD LABORATORY Final Result [facility] ALVARO [facility]DERS LIZA BRUNER [facility] [address] [address], from Last 3 Months Insurance [facility] Care Teams Front Desk Host Relationship Specialty Start Date End Date Damien East MD [facility] [address] [place] [address] PCP - General INTERNAL MEDICINE 07/17/21
--- OUTSIDE RECORDS SUMMARY | 2024-10-25 10:15 | XMS_ITS | Encounter Summary ---
Author Organization [facility] Address [address] [place] [address]. [place] [address] [place] [address] Care Team Providers Care Lpn Care Manager Name Role Phone Damien East MD Primary Care Provider [phone] Encounter Details Date Type Department Care Team (Latest Contact Info) Description 04/26/2024 MyChart Message Enc [facility] Medical Group Multispecialty Care - [facility] 3 [facility] [address] [place] [id number] Feliz Palma MD 3 [facility] [address] [place] [address] [phone] Prescription Help Social History Tobacco Use Types Packs/Day Years Used Date Smoking Tobacco: Former Cigarettes Q uit: 09/14/2016 Smokeless Tobacco: Never Comments:social smoker; coun seled by Dr. East Alcohol Use Standard Drinks/Week Comments Not Currently 1.7 (1 standard drink = 0.6 oz p ure alcohol) social PHQ-2 Answer Date Recorded Patient Health Questionnaire-2 Score 0 04/24/2024 Sex and Gender Information Value Date Recorded Sex Assigned at Not on file Legal Sex Male 8:59 AM CDT Gender Identity Not on file Sexual Orientation Not on file documented as of this encounter Plan of Treatment Upcoming Encounters Date Type Department Care Team (Latest Contact Info) Description 11/30/2024 11:[address] [facility] Hospital Encounter [facility] Surgery [address] [place] [address] [phone] Jamarcus De La O MD [facility] [facility] [address] [place] [address] 11/30/2024 11:08 AM LEATHER POLISHER - 11/30/2024 11:42 AM LEATHER POLISHER Surgery [facility] [address] [place] [address] Jamarcus De La O MD 95[address] [facility] [address] [place] [address] EGD WITH POSSIBLE BIOPSY POSSIBLE DILATION Scheduled Procedures Name Priority Associated Diagnoses Date/Ti me EGD WITH BIOPSY Gallbladder sludge Dysphagia, unspecified type Abdominal pain, unspecified abdominal location 11/30/2024 11:08 AM LEATHER POLISHER documented as of this encounter Visit Diagnoses Not on filedocumented in this encounter Additional Health Concerns Assessment Noted Time PHQ-9 Depression Total Score: 3 11/04/19 24 4:11 PM LEATHER POLISHER documented as of this encounter Care Teams Lpn Care Manager Relationship Specialty Start Date End Date Damien East MD [address] [address] PCP - General INTERNAL MEDICINE 07/17/21 documented as of this encounter
--- OUTSIDE RECORDS SUMMARY | 2024-10-25 10:15 | XMS_ITS | Encounter Summary ---
Author Organization [facility] Address [address] [place] [address]. [place], [place] [address] [place] [address] Care Team Providers Care Process Development Engineer Name Role Phone Damien East MD Primary Care Provider [phone] Encounter Details Date Type Department Care Team (Late st Contact Info) Description 08/31/[address] [facility] Medical Group Multispecialty Care - [place] [address] [address] [place] [address] [place] [address] [place] [address] 157 [place], [place] [phone] General Surgeon Social History Tobacco Use Types Packs/Day Years Used Date Smoking Tobacco: Former Cigarettes Q uit: 09/14/2016 Smokeless Tobacco: Never Comments:social smoker; coun seled by Dr. East Alcohol Use Standard Drinks/Week Comments Not Currently 1.7 (1 standard drink = 0.6 oz p ure alcohol) social PHQ-2 Answer Date Recorded Patient Health Questionnaire-2 Score 0 08/15/2024 Sex and Gender Information Value Date Recorded Sex Assigned at Not on file Legal Sex Male 8:59 AM CDT Gender Identity Not on file Sexual Orientation Not on file documented as of this encounter Plan of Treatment Upcoming Encounters Date Type Department Care Team (Latest Contact Info) Description 11/30/2024 11:08 AM [facility] Hospital Encounter [facility] [address] [place] [address] Jamarcus De La O MD [address] [place] [address] 11/30/2024 11:[address] BAILIFF - 11/30/2024 11:[address] BAILIFF Surgery [facility] [address] [place] [address] Jamarcus De La O MD [address] [facility] 175 [place] [address] EGD WITH POSSIBLE BIOPSY POSSIBLE DILATION Scheduled Procedures Name Priority Associated Diagnoses Date/Ti me EGD WITH BIOPSY Gallbladder sludge Dysphagia, unspecified type Abdominal pain, unspecified abdominal location 11/30/2024 11:[address] BAILIFF documented as of this encounter Visit Diagnoses Not on filedocumented in this encounter Additional Health Concerns Assessment Noted Time PHQ-9 Depression Total Score: 0 08/15/20 24 6:[address] BAILIFF documented as of this encounter Care Teams Process Development Engineer Relationship Specialty Start Date End Date Damien East MD 1188 [facility] 157 [place] [address] PCP - General INTERNAL MEDICINE 07/17/21 documented as of this encounter
--- OUTSIDE RECORDS SUMMARY | 2024-10-25 10:15 | XMS_ITS | Encounter Summary ---
Author Organization [facility] Address [address] [place] [address]. [place], [place] [address] [place] [address] Care Team Providers Care Runner On Name Role Phone Damien East MD Primary Care Provider [phone] Encounter Details Date Type Department Care Team (Late st Contact Info) Description 06/15/2024 MyCLittle Bridge Worldt Message Enc [facility] Medical Group Multispecialty Care - [place] [address] [address] [place] [address] [place] [address] [place] [address] 157 [place], [place] [phone] Referral Help Social History Tobacco Use Types Packs/Day [...] (Latest Contact Info) Description 11/30/2024 11:08 AM [facility] Hospital Encounter [facility] [address] [place] [address] Jamarcus De La O MD [address] [place] [address] 11/30/2024 11:08 AM ELEVATOR MECHANIC APPRENTICE - 11/30/2024 11:42 AM ELEVATOR MECHANIC APPRENTICE Surgery [facility] [address] [place] [address] Jamarcus De La O MD [address] [facility] 175 [place] [address] EGD WITH POSSIBLE BIOPSY POSSIBLE DILATION Scheduled Procedures Name Priority Associated Diagnoses Date/Ti me EGD WITH BIOPSY Gallbladder sludge Dysphagia, unspecified type Abdominal pain, unspecified abdominal location 11/30/2024 11:08 AM ELEVATOR MECHANIC APPRENTICE documented as of this encounter Visit Diagnoses Not on filedocumented in this encounter Additional Health Concerns Assessment Noted Time PHQ-9 Depression Total Score: 3 11/04/19 24 4:11 PM ELEVATOR MECHANIC APPRENTICE documented as of this encounter Care Teams Runner On Relationship Specialty Start Date End Date Damien East MD 1188 [facility] 157 [place] [address] PCP - General INTERNAL MEDICINE 07/17/21 documented as of this encounter
--- OUTSIDE RECORDS SUMMARY | 2024-10-25 10:15 | XMS_ITS | Encounter Summary ---
Author Organization [facility] Address [address] [place] [address]. [place] [address] [place] [address] Care Team Providers Care Solid Waste Collection Worker Name Role Phone Damien East MD Primary Care Provider [phone] Encounter Details Date Type Department Care Team (Late st Contact Info) Description 08/17/2024 Mirantis Message Enc [facility] Medical Group Multispecialty Care - [address] [place] [address] [place], [facility] Provider lab results Social History Tobacco Use Types Packs/Day Years [...] (Latest Contact Info) Description 11/30/2024 11:08 AM [facility] Hospital Encounter [facility] [address] [place] [address] Jamarcus De La O MD 9515 [facility] 175 [place] [address] 11/30/2024 11:08 AM MALL PLANT CARETAKER - 11/30/2024 11:42 AM MALL PLANT CARETAKER Surgery [facility] [address] [place] [address] Jamarcus De La O MD 9515 [facility] 175 [place] [address] EGD WITH POSSIBLE BIOPSY POSSIBLE DILATION Scheduled Procedures Name Priority Associated Diagnoses Date/Ti me EGD WITH BIOPSY Gallbladder sludge Dysphagia, unspecified type Abdominal pain, unspecified abdominal location 11/30/2024 11:08 AM MALL PLANT CARETAKER documented as of this encounter Visit Diagnoses Not on filedocumented in this encounter Additional Health Concerns Assessment Noted Time PHQ-9 Depression Total Score: 0 08/15/20 24 6:03 PM MALL PLANT CARETAKER documented as of this encounter Care Teams Solid Waste Collection Worker Relationship Specialty Start Date End Date Damien East MD 1188 [facility] [address] [place] [address] PCP - General INTERNAL MEDICINE 07/17/21 documented as of this encounter
--- OUTSIDE RECORDS SUMMARY | 2024-10-25 10:15 | XMS_ITS | Encounter Summary ---
Author Organization [facility] Address [address] [place] [address]. [place], [place] [address] [place] [address] Care Team Providers Care Coin Purse Assembler Name Role Phone Damien East MD Primary Care Provider [phone] Encounter Details Date Type Department Care Team (Late st Contact Info) Description 01/13/2023 MyChart Message Enc [facility] Medical Group Multispecialty Care - [place] [address] [address] [place] [address] [place] [address] [place] [address] 157 [place], [place] [phone] [employer] Social History Tobacco Use Types Packs/Day Years Used Date Smoking Tobacco: Former Cigarettes Q uit: 09/14/2016 Smokeless Tobacco: Never Comments:social smoker; coun seled by Dr. East Alcohol Use Standard Drinks/Week Comments Not Currently 1.7 (1 standard drink = 0.6 oz p ure alcohol) social PHQ-2 Answer Date Recorded Patient Health Questionnaire-2 Score 1 11/03/2022 Sex and Gender Information Value Date Recorded Sex Assigned at Not on file Legal Sex Male 8:59 AM CDT Gender Identity Not on file Sexual Orientation Not on file documented as of this encounter Plan of Treatment Upcoming Encounters Date Type Department Care Team (Latest Contact Info) Description 11/30/2024 11:08 AM [facility] Hospital Encounter [facility] [address] [place] [address] Jamarcus De La O MD 0935 [facility] 175 [place] [address] 11/30/2024 11:08 AM PARKING ENFORCEMENT SPECIALIST - 11/30/2024 11:42 AM PARKING ENFORCEMENT SPECIALIST Surgery [facility] [address] [place] [address] Jamarcus De La O MD [address] [facility] 175 [place] [address] EGD WITH POSSIBLE BIOPSY POSSIBLE DILATION Scheduled Procedures Name Priority Associated Diagnoses Date/Ti me EGD WITH BIOPSY Gallbladder sludge Dysphagia, unspecified type Abdominal pain, unspecified abdominal location 11/30/2024 11:08 AM PARKING ENFORCEMENT SPECIALIST documented as of this encounter Visit Diagnoses Not on filedocumented in this encounter Additional Health Concerns Assessment Noted Time PHQ-9 Depression Total Score: 3 02/06/20 22 3:46 PM CDT documented as of this encounter Care Teams Coin Purse Assembler Relationship Specialty Start Date End Date Damien East MD 1188 [facility] 157 [place] [address] PCP - General INTERNAL MEDICINE 07/17/21 documented as of this encounter
--- OUTSIDE RECORDS SUMMARY | 2024-10-25 10:15 | XMS_ITS | Clinical Summary ---
Author Organization [facility] Address [address] [place] [address] Care Team Providers Care Cloth Mercerizer Operator Name Role Phone Unavailable Primary Care Provider Unavailabl e Social History Tobacco Use Types Packs/Day Years Used Date Smoking Tobacco: Never Assessed Sex and Gender Information Value Date Recorded Sex Assigned at Not on file Legal Sex Male 10:57 AM JAWBONE PULLER Gender Identity Not on file Sexual Orientation Not on file Plan of Treatment Health Maintenance Due Date Last Done Comments Hepatitis C Virus (HCV) Screening 1981 Hepatitis B Immunization (1 of 3 - 19+ 3-dose series) 2000 Influenza Immunization (#1) 2024 SARS-COV-2 Immunization (3 - 2023-25 season) 2024 01/30/2021, 01/09/2021 Respiratory Syncytial Virus (RSV) Immunization (Adult) (1 - 1-dose 75+ series) 2056 DTaP/Tdap/Td Immunization Discontinued 02/06/2021 TdaP Immunization Completed 02/06/2021 Meningococcal Immunization (ACWY) Aged Out No longer eligible based on patient's age to complete this topic Pneumococcal Immunization Combined Aged Out No longer eligible based on patient's age to complete this topic Rotavirus Immunization Aged Out No lo nger eligible based on patient's age to complete this topic
--- OUTSIDE RECORDS SUMMARY | 2024-10-25 10:15 | XMS_ITS | Encounter Summary ---
Author Organization [facility] Address [address] [place] [address]. [place], [place] [address] [place] [address] Care Team Providers Care Syrup Maker Cook Name Role Phone Damien East MD Primary Care Provider [phone] Encounter Details Date Type Department Care Team (Latest Contact Info) Description 05/25/2022 Neurovance Message Enc [facility] Medical Group Multispecialty Care - [place] [address] [address] [place], [place] [phone] Damien East MD [address] [place] [address] 157 [place], [place] [phone] Follow up question Social History Tobacco Use Types Packs/Day Years [...] suspected to have Coronavirus/COVID-19? No / Unsure 05/24/2022 2:38 PM CDT documented as of this encounter Plan of Treatment Upcoming Encounters Date Type Department Care Team (Latest Contact Info) Description 11/30/2024 11:08 AM DESK PENS ASSEMBLER Hospital Encounter [facility] [address] [place] [address] Jamarcus De La O MD 9515 [facility] [address] [place], [place] [address] 11/30/2024 11:08 AM DESK PENS ASSEMBLER - 11/30/2024 11:42 AM DESK PENS ASSEMBLER Surgery [facility] [address] [place] [address] Jamarcus De La O MD 2915 [facility] [address] [place] [address] EGD WITH POSSIBLE BIOPSY POSSIBLE DILATION Scheduled Procedures Name Priority Associated Diagnoses Date/Ti me EGD WITH BIOPSY Gallbladder sludge Dysphagia, unspecified type Abdominal pain, unspecified abdominal location 11/30/2024 11:08 AM DESK PENS ASSEMBLER documented as of this encounter Visit Diagnoses Not on filedocumented in this encounter Additional Health Concerns Assessment Noted Time PHQ-9 Depression Total Score: 3 02/06/20 22 3:46 PM CDT documented as of this encounter Care Teams Syrup Maker Cook Relationship Specialty Start Date End Date Damien East MD 1188 [facility] 157 [place] [address] PCP - General INTERNAL MEDICINE 07/17/21 documented as of this encounter
--- OUTSIDE RECORDS SUMMARY | 2024-10-25 10:15 | XMS_ITS | Encounter Summary ---
Author Organization [facility] Address [address] [place] [address]. [place], [place] [address] [place] [address] Care Team Providers Care Public Relations Counselor Name Role Phone Damien East MD Primary Care Provider [phone] Encounter Details Date Type Department Care Team (Latest Contact Info) Description 06/03/2022 Urget Message Enc [facility] Medical Group Multispecialty Care - [place] [address] [address] [place], [place] [phone] Damien East MD [address] [place] [address] 157 [place], [place] [phone] Question from last visit Social History Tobacco Use Types Packs/Day Years [...] (Latest Contact Info) Description 11/30/2024 11:08 AM PURCHASING ANALYST Hospital Encounter [facility] [address] [place] [address] Jamarcus De La O MD 9515 [facility] [address] [place], [place] [address] 11/30/2024 11:08 AM PURCHASING ANALYST - 11/30/2024 11:42 AM PURCHASING ANALYST Surgery [facility] [address] [place] [address] Jamarcus De La O MD 4115 [facility] [address] [place] [address] EGD WITH POSSIBLE BIOPSY POSSIBLE DILATION Scheduled Procedures Name Priority Associated Diagnoses Date/Ti me EGD WITH BIOPSY Gallbladder sludge Dysphagia, unspecified type Abdominal pain, unspecified abdominal location 11/30/2024 11:08 AM PURCHASING ANALYST documented as of this encounter Visit Diagnoses Not on filedocumented in this encounter Additional Health Concerns Assessment Noted Time PHQ-9 Depression Total Score: 3 02/06/20 22 3:46 PM CDT documented as of this encounter Care Teams Public Relations Counselor Relationship Specialty Start Date End Date Damien East MD 1188 [facility] [address] [place] [address] PCP - General INTERNAL MEDICINE 07/17/21 documented as of this encounter
--- OUTSIDE RECORDS SUMMARY | 2024-10-25 10:15 | XMS_ITS | Encounter Summary ---
Author Organization [facility] Address [address] [place] [address]. [place], [place] [address] [place] [address] Care Team Providers Care Green Inspector Name Role Phone Damien East MD Primary Care Provider [phone] Encounter Details Date Type Department Care Team (Late st Contact Info) Description 07/30/2024 MyCBeyond Compliancet Message Enc [facility] Medical Group Multispecialty Care - [place] [address] [address] [place] [address] [place] [address] [place] [address] 157 [place], [place] [phone] Physical Aug 15 Social History Tobacco Use Types Packs/Day Years [...] (Latest Contact Info) Description 11/30/2024 11:08 AM [facility] Hospital Encounter [facility] [address] [place], [place] [phone] Jamarcus De La O MD 7108 [facility] 175 [place] [address] 11/30/2024 11:08 AM ORTHOPEDIC SPECIALIST - 11/30/2024 11:42 AM ORTHOPEDIC SPECIALIST Surgery [facility] [address] [place] [address] Jamarcus De La O MD [address] [facility] 175 [place] [address] EGD WITH POSSIBLE BIOPSY POSSIBLE DILATION Scheduled Procedures Name Priority Associated Diagnoses Date/Ti me EGD WITH BIOPSY Gallbladder sludge Dysphagia, unspecified type Abdominal pain, unspecified abdominal location 11/30/2024 11:08 AM ORTHOPEDIC SPECIALIST documented as of this encounter Visit Diagnoses Not on filedocumented in this encounter Additional Health Concerns Assessment Noted Time PHQ-9 Depression Total Score: 3 11/04/19 24 4:11 PM ORTHOPEDIC SPECIALIST documented as of this encounter Care Teams Green Inspector Relationship Specialty Start Date End Date Damien East MD 1188 [facility] 157 [place] [address] PCP - General INTERNAL MEDICINE 07/17/21 documented as of this encounter
--- OUTSIDE RECORDS SUMMARY | 2024-10-25 10:15 | XMS_ITS | Encounter Summary ---
Author Organization [facility] Address [address] [place] [address]. [place], [place] [address] [place] [address] Care Team Providers Care Branch Customer Service Representative Name Role Phone Damien East MD Primary Care Provider [phone] Encounter Details Date Type Department Care Team (Late st Contact Info) Description 11/28/2023 rankdeskt Message Enc [facility] Medical Group Multispecialty Care - [place] [address] [address] [place] [address] [place] [address] [place] [address] 157 [place], [place] [id number] Medication Social History Tobacco Use Types Packs/Day Years Used Date Smoking Tobacco: Former Cigarettes Q uit: 09/14/2016 Smokeless Tobacco: Never Comments:social smoker; coun seled by Dr. East Alcohol Use Standard Drinks/Week Comments Not Currently 1.7 (1 standard drink = 0.6 oz p ure alcohol) social PHQ-2 Answer Date Recorded Patient Health Questionnaire-2 Score 0 11/04/2023 Sex and Gender Information Value Date Recorded Sex Assigned at Not on file Legal Sex Male 8:59 AM CDT Gender Identity Not on file Sexual Orientation Not on file documented as of this encounter Plan of Treatment Upcoming Encounters Date Type Department Care Team (Latest Contact Info) Description 11/30/2024 11:08 AM [facility] Hospital Encounter [facility] [address] [place] [address] Jamarcus De La O MD 4305 [facility] [address] [place] [address] 11/30/2024 11:08 AM DELIVERY LEAD - 11/30/2024 11:42 AM DELIVERY LEAD Surgery [facility] [address] [place] [address] Jamarcus De La O MD 9515 [facility] 175 [place] [address] EGD WITH POSSIBLE BIOPSY POSSIBLE DILATION Scheduled Procedures Name Priority Associated Diagnoses Date/Ti me EGD WITH BIOPSY Gallbladder sludge Dysphagia, unspecified type Abdominal pain, unspecified abdominal location 11/30/2024 11:08 AM DELIVERY LEAD documented as of this encounter Visit Diagnoses Not on filedocumented in this encounter Additional Health Concerns Assessment Noted Time PHQ-9 Depression Total Score: 3 11/04/19 24 4:11 PM DELIVERY LEAD documented as of this encounter Care Teams Branch Customer Service Representative Relationship Specialty Start Date End Date Damien East MD 1188 [facility] 157 [place] [address] PCP - General INTERNAL MEDICINE 07/17/21 documented as of this encounter
--- OUTSIDE RECORDS SUMMARY | 2024-10-25 10:15 | XMS_ITS | Encounter Summary ---
Author Organization [facility] Address [address] [place] [address]. [place], [place] [address] [place] [address] Care Team Providers Care Product Specialist Name Role Phone Damien East MD Primary Care Provider [phone] Encounter Details Date Type Department Care Team (Late st Contact Info) Description 07/07/2023 Xtreme Powert Message Enc [facility] Medical Group Multispecialty Care - [place] [address] [address] [place] [address] [place] [address] [place] [address] 157 [place], [place] [id number] Question Social History Tobacco Use Types Packs/Day Years Used Date Smoking Tobacco: Former Cigarettes Q uit: 09/14/2016 Smokeless Tobacco: Never Comments:social smoker; coun seled by Dr. East Alcohol Use Standard Drinks/Week Comments Not Currently 1.7 (1 standard drink = 0.6 oz p ure alcohol) social PHQ-2 Answer Date Recorded Patient Health Questionnaire-2 Score 0 05/20/2023 Sex and Gender Information Value Date Recorded Sex Assigned at Not on file Legal Sex Male 8:59 AM CDT Gender Identity Not on file Sexual Orientation Not on file documented as of this encounter Plan of Treatment Upcoming Encounters Date Type Department Care Team (Latest Contact Info) Description 11/30/2024 11:08 AM [facility] Hospital Encounter [facility] [address] [place] [address] Jamarcus De La O MD [address] [facility] [address] [place] [address] 11/30/2024 11:08 AM PREPLEATER - 11/30/2024 11:42 AM PREPLEATER Surgery [facility] [address] [place] [address] Jamarcus De La O MD [address] [facility] 175 [place] [address] EGD WITH POSSIBLE BIOPSY POSSIBLE DILATION Scheduled Procedures Name Priority Associated Diagnoses Date/Ti me EGD WITH BIOPSY Gallbladder sludge Dysphagia, unspecified type Abdominal pain, unspecified abdominal location 11/30/2024 11:08 AM PREPLEATER documented as of this encounter Visit Diagnoses Not on filedocumented in this encounter Additional Health Concerns Assessment Noted Time PHQ-9 Depression Total Score: 2 03/30/20 23 9:33 AM CDT documented as of this encounter Care Teams Product Specialist Relationship Specialty Start Date End Date Damien East MD 1188 [facility] 157 [place] [address] PCP - General INTERNAL MEDICINE 07/17/21 documented as of this encounter
--- OUTSIDE RECORDS SUMMARY | 2024-10-25 10:15 | XMS_ITS | Encounter Summary ---
Author Organization [facility] Address [address] [place] [address]. [place] [address] [place] [address] Care Team Providers Care Cotton Converter Name Role Phone Damien East MD Primary Care Provider [phone] Encounter Details Date Type Department Care Team (Late st Contact Info) Description 03/27/2024 MyChart Message Enc [facility] Medical Group Multispecialty Care - [facility] 3 [facility] [address] [place] [address] Feliz Palma MD 3 [facility] [address] [place], [place] [phone] () Social History Tobacco Use Types Packs/Day Years [...] (Latest Contact Info) Description 11/30/2024 11:08 AM [facility] Encounter [facility] [address] [place] [address] Jamarcus De La O MD 1015 [facility] 175 [place] [address] 11/30/2024 11:08 AM TABLEAU REPORT DEVELOPER - 11/30/2024 11:42 AM TABLEAU REPORT DEVELOPER Surgery [facility] [address] [place] [address] Jamarcus De La O MD 3581 [facility] 175 [place] [address] EGD WITH POSSIBLE BIOPSY POSSIBLE DILATION Scheduled Procedures Name Priority Associated Diagnoses Date/Ti me EGD WITH BIOPSY Gallbladder sludge Dysphagia, unspecified type Abdominal pain, unspecified abdominal location 11/30/2024 11:08 AM TABLEAU REPORT DEVELOPER documented as of this encounter Visit Diagnoses Not on filedocumented in this encounter Additional Health Concerns Assessment Noted Time PHQ-9 Depression Total Score: 3 11/04/19 24 4:11 PM TABLEAU REPORT DEVELOPER documented as of this encounter Care Teams Cotton Converter Relationship Specialty Start Date End Date Damien East MD 1188 [facility] 157 [place] [address] PCP - General INTERNAL MEDICINE 07/17/21 documented as of this encounter
--- OUTSIDE RECORDS SUMMARY | 2024-10-25 10:15 | XMS_ITS | Encounter Summary ---
Author Organization [facility] Address [address] [place] [address]. [place], [place] [address] [place] [address] Care Team Providers Care Die Stamper Name Role Phone Damien East MD Primary Care Provider [phone] Encounter Details Date Type Department Care Team ( Contact Info) Description 07/19/2022 MyCRoundboxt Message Enc [facility] Medical Group Multispecialty Care - [place] [address] [address] [place] [address] Damien East MD [address] [place] [address] 157 [place], [place] [phone] Prescription Social History Tobacco Use Types Packs/Day Years Used Date Smoking Tobacco: Former Cigarettes Q uit: 09/14/2016 Smokeless Tobacco: Never Comments:social smoker Alcohol Use Standard Drinks/Week Comments Not Currently 1.7 (1 standard drink = 0.6 oz p ure alcohol) social PHQ-2 Answer Date Recorded PHQ-2 Score - If the patient scores above 3, please move on to questions 3-9 0 07/05/2022 Sex and Gender Information Value Date Recorded Sex Assigned at Not on file Legal Sex Male 8:59 AM CDT Gender Identity Not on file Sexual Orientation Not on file COVID-19 Exposure Response Date Recorded In the last 10 days, have yo u been in contact with someone who was confirmed or suspected to have Coronavirus/COVID-19? No / Unsure 07/16/2022 4:12 PM CDT documented as of this encounter Plan of Treatment Upcoming Encounters Date Type Department Care Team (Latest Contact Info) Description 11/30/2024 11:08 AM [facility]CULAR TANK COOPER Hospital Encounter [facility] [address] [place] [address] Jamarcus De La O MD 9515 [facility] 175 [place] [address] 11/30/2024 11:08 AM CIRCULAR TANK COOPER - 11/30/2024 11:42 AM CIRCULAR TANK COOPER Surgery [facility] [address] [place] [address] Jamarcus De La O MD 9309 [facility] 175 [place] [address] EGD WITH POSSIBLE BIOPSY POSSIBLE DILATION Scheduled Procedures Name Priority Associated Diagnoses Date/Ti me EGD WITH BIOPSY Gallbladder sludge Dysphagia, unspecified type Abdominal pain, unspecified abdominal location 11/30/2024 11:08 AM CIRCULAR TANK COOPER documented as of this encounter Visit Diagnoses Not on filedocumented in this encounter Additional Health Concerns Assessment Noted Time PHQ-9 Depression Total Score: 3 02/06/20 22 3:46 PM CDT documented as of this encounter Care Teams Die Stamper Relationship Specialty Start Date End Date Damien East MD [address]8 [facility] [address] [place] [address] PCP - General INTERNAL MEDICINE 07/17/21 documented as of this encounter
--- OUTSIDE RECORDS SUMMARY | 2024-10-25 10:15 | XMS_ITS | Encounter Summary ---
Author Organization [facility] Address [address] [place] [address]. [place] [address] [place] [address] Care Team Providers Care Harbor Pilot Name Role Phone Damien East MD Primary Care Provider [phone] Encounter Details Date Type Department Care Team (Late st Contact Info) Description 11/22/2022 [employer] Message [facility] Patient Accounts [address] [place] [address] [facility] Provider Monthly Credit Card Payment Social History Tobacco Use Types Packs/Day Years [...] suspected to have Coronavirus/COVID-19? No / Unsure 11/03/2022 3:46 PM ACTIVE DIRECTORY SPECIALIST documented as of this encounter Plan of Treatment Upcoming Encounters Date Type Department Care Team (Latest Contact Info) Description 11/30/2024 11:08 AM ACTIVE DIRECTORY SPECIALIST Hospital Encounter [facility] [address] [place], [place] [phone] Jamarcus De La O MD [address] [place] [address] 11/30/2024 11:08 AM ACTIVE DIRECTORY SPECIALIST - 11/30/2024 11:42 AM ACTIVE DIRECTORY SPECIALIST Surgery [facility] [address] [place] [address] Jamarcus De La O MD [address] [place] [address] EGD WITH POSSIBLE BIOPSY POSSIBLE DILATION Scheduled Procedures Name Priority Associated Diagnoses Date/Ti me EGD WITH BIOPSY Gallbladder sludge Dysphagia, unspecified type Abdominal pain, unspecified abdominal location 11/30/2024 11:08 AM ACTIVE DIRECTORY SPECIALIST documented as of this encounter Visit Diagnoses Not on filedocumented in this encounter Additional Health Concerns Assessment Noted Time PHQ-9 Depression Total Score: 3 02/06/20 22 3:46 PM CDT documented as of this encounter Care Teams [place] Pilot Relationship Specialty Start Date End Date Damien East MD 1188 [facility] 157 [place] [address] PCP - General INTERNAL MEDICINE 07/17/21 documented as of this encounter
--- OUTSIDE RECORDS SUMMARY | 2024-10-25 10:15 | XMS_ITS | Encounter Summary ---
Author Organization [facility] Address [address] [place] [address]. [place], [place] [address] [place], [place] [id number] Care Team Providers Care Supervisor Meter Repair Shop Name Role Phone Damien East MD Primary Care Provider [phone] Encounter Details Date Type Department Care Team (Late st Contact Info) Description 01/11/2023 [employer] Message Enc [facility] Medical Group Multispecialty Care - [place] [address] [address] [place], [place] [phone] Damien East MD [address] [place] [address] 157 [place], [place] [phone] Information Social History Tobacco Use Types Packs/Day Years [...] on file documented as of this encounter Progress Notes * Sweta Calvillo, CHEMICAL PLANT MANAGER - 01/11/2023 11:40 AM CDT Called patient to discuss medication. Victoza was sent into the pharmacy and this was approved through insurance. Patient to warp picker from pharmacy at his convenience. Patient to discuss fatigue with Dr. East during his next office visit on 01/21. documented in this encounter Plan of Treatment Upcoming Encounters Date Type Department Care Team (Latest Contact Info) Description 11/30/2024 11:08 AM DERMATOLOGY PHYSICIAN Hospital Encounter [facility] [address] [place] [address] Jamarcus De La O MD 9515 [facility] [address] [place] [address] 11/30/2024 11:08 AM DERMATOLOGY PHYSICIAN - 11/30/2024 11:42 AM DERMATOLOGY PHYSICIAN Surgery [facility] [address] [place] [address] Jamarcus De La O MD 9515 [facility] [address] [place], [place] [phone] EGD WITH POSSIBLE BIOPSY POSSIBLE DILATION Scheduled Procedures Name Priority Associated Diagnoses Date/Ti me EGD WITH BIOPSY Gallbladder sludge Dysphagia, unspecified type Abdominal pain, unspecified abdominal location 11/30/2024 11:08 AM DERMATOLOGY PHYSICIAN documented as of this encounter Visit Diagnoses Not on filedocumented in this encounter Additional Health Concerns Assessment Noted Time PHQ-9 Depression Total Score: 3 02/06/20 22 3:46 PM CDT documented as of this encounter Care Teams Supervisor Meter Repair Shop Relationship Specialty Start Date End Date Damien East MD 1188 [facility] 157 [place] [address] PCP - General INTERNAL MEDICINE 07/17/21 documented as of this encounter
--- OUTSIDE RECORDS SUMMARY | 2024-10-25 10:15 | XMS_ITS | Encounter Summary ---
Author Organization [facility] Address [address] [place] [address]. [place] [address] [place] [address] Care Team Providers Care Engineering Manager Name Role Phone Damien East MD Primary Care Provider [phone] Encounter Details Date Type Department Care Team (Late st Contact Info) Description 06/22/[address] [facility] Medical Group Multispecialty Care - [facility] 3 [facility] [address] [place] [id number] Feliz Palma MD 3 [facility] [address] [place], [place] [phone] Colitis Social History Tobacco Use Types Packs/Day Years [...] (Latest Contact Info) Description 11/30/2024 11:08 AM [facility] Hospital Encounter [facility] [address] [place] [address] Jamarcus De La O MD 9115 [facility] 175 [place] [address] 11/30/2024 11:08 AM CRIME LABORATORY ANALYST - 11/30/2024 11:42 AM CRIME LABORATORY ANALYST Surgery [facility] [address] [place] [address] Jamarcus De La O MD 9515 [facility] 175 [place] [address] EGD WITH POSSIBLE BIOPSY POSSIBLE DILATION Scheduled Procedures Name Priority Associated Diagnoses Date/Ti me EGD WITH BIOPSY Gallbladder sludge Dysphagia, unspecified type Abdominal pain, unspecified abdominal location 11/30/2024 11:08 AM CRIME LABORATORY ANALYST documented as of this encounter Visit Diagnoses Not on filedocumented in this encounter Additional Health Concerns Assessment Noted Time PHQ-9 Depression Total Score: 3 11/04/19 24 4:11 PM CRIME LABORATORY ANALYST documented as of this encounter Care Teams Engineering Manager Relationship Specialty Start Date End Date Damien East MD [address] [address] PCP - General INTERNAL MEDICINE 07/17/21 documented as of this encounter
== END 2024-10-21 13:47 | disposition home or self-care (01) ==
PROVIDERS: Emergency Medicine; Emergency Provider Preventive Medicine Aerospace Medicine; PCP Internal Medicine
DX: K51.90 Ulcerative colitis, unspecified, without complications (principal); R11.2 Nausea with vomiting, unspecified
CPT/HCPCS: 36415; 74177; 80053; 81003; 83605; 83690; 85025; 96361; 96374; 96375; 99284; J2270; J2405; J7030; Q9967